=== PATIENT | female | born 1940 | race Caucasian/White ===

== ENCOUNTER → 2016-12-31 | Outpatient (CLI) | payer MEDICARE, OTHER, MEDICAID ==
[~2016-12-31] MED LIST: ARIMIDEX1 MG PO; FEMARA2.5 MG PO; IBRANCE125 MG PO; MORPHINE SULFAT30 M3 PO; MULTIVITAMIN1 TAB PO; PERCOCET 10 MG1 EACH PO
--- NOTE | 2016-12-31 11:10 | RADIOLOGY REPORT PS360 ---
PELVIS AP ONLY HISTORY: Metastatic disease with pelvic pain POSS PELVIC FXS-- HX OF METASTASIS ORDERING PHYSICIAN: Van Flowers MD PATIENT AGE: 76 years COMPARISON: None FINDINGS: There is extensive blastic metastatic disease involving the lower lumbar spine as well as diffuse metastasis of the pelvis involving sacrum, ilium, and ischium bilaterally. There is a displaced fracture of the right femoral neck in the subcapital area. The femur is foreshortened proximally x 3.4 cm. There is a comminuted fracture involving the left superior and inferior pubic ramus. The lateral fracture fragments are displaced superiorly x 2.7 cm. Comminuted fracture in the inferior pubic ramus extends into the ischium. 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
--- NOTE | 2016-12-31 14:57 | RADIOLOGY REPORT PS360 ---
BONE DENSITOMETRY(HIP:LT SPINE HISTORY: BREAST CA ORDERING PHYSICIAN: Van Flowers MD PATIENT AGE: 76 years COMPARISON: None FINDINGS: This patient has multiple bony metastasis which are sclerotic which gives rise to falsely elevated bone mineral density. The lowest density is present in the left hip 1.059 g/sq cm with a T score of 0.2. The patient has known pathologic fractures. The scanogram images show a displaced right femoral neck fracture as well as displaced left inferior pubic ramus fracture. Multiple sclerotic lesions are present involving the pelvis and lumbar spine consistent with metastasis. IMPRESSION: Bony metastasis with pathologic fractures. A pelvic x-ray was performed which confirmed these findings.
== END ==
LOC: RAD 10:00
DX: Z78.0 Asymptomatic menopausal state (principal); Z13.820 Encounter for screening for osteoporosis; C50.912 Malignant neoplasm of unspecified site of left female breast; Z17.0 Estrogen receptor positive status [ER+]

== ENCOUNTER → 2017-01-01 | Outpatient (CLI) | payer MEDICARE, OTHER, MEDICAID ==
--- NOTE | 2017-01-01 16:24 | RADIOLOGY REPORT PS360 ---
NUC BONE SCAN-WHOLE BODY-TBB HISTORY: BREAST CA ORDERING PHYSICIAN: Van Flowers MD PATIENT AGE: 76 years DOSE: 26.2 mCi technetium MDP COMPARISON: 09/08/2013 FINDINGS: There is extensive bony metastasis with increased activity noted in multiple long bones, the spine, ribs, and pelvis. These areas of increased activity include: proximal right humerus, mid right humerus, distal right humerus, multiple ribs including the left ninth, eighth, seventh, fifth, in the right 10, ninth,, seventh, sixth ribs. Extensive increased activity in the pelvis both right and left sacroiliac region. There is pathologic fracture with increased activity in the right femoral neck as well as increased activity in the left inferior pubic ramus. Small focal area of increased activity is present in the mid to proximal shaft of the femur on the right. There is increased activity involving the right parietal bone. Increased activity also present at the L2 region of the lumbar spine. New lesions are present in the distal aspect of the right humerus and in the mid to proximal shaft of the right femur. The lesion in the left seventh eighth and ninth ribs are more extensive on today's exam and the lesion in the right seventh rib is new on today's study. IMPRESSION: Extensive bony metastasis somewhat progressed than when compared to the previous exam
== END ==
LOC: RAD 10:34
DX: C50.912 Malignant neoplasm of unspecified site of left female breast (principal); Z17.0 Estrogen receptor positive status [ER+]
CPT/HCPCS: A9503

== ENCOUNTER 2017-01-29 08:58 | Outpatient (CLI) | payer MEDICARE, OTHER, MEDICAID ==
[~2017-01-29] VITALS: Ht 160 cm; Wt 54.9 kg
[2017-01-29 09:30] VITALS: BP 149/87
[2017-01-29 09:50] VITALS: BP 164/89
== END 2017-01-29 10:00 | disposition home or self-care (01) ==
LOC: COP 08:58
DX: C50.912 Malignant neoplasm of unspecified site of left female breast (principal)
CPT/HCPCS: J3489